=== PATIENT | female | born 1955 | race Caucasian/White ===

== ENCOUNTER 2019-04-22 15:49 | Inpatient (IN) | payer BC ==
[~2019-04-22] VITALS: Ht 157.5 cm; Wt 94.8 kg
[2019-04-22 16:00] VITALS: BP 120/64
[2019-04-22] MEDS ORDERED: ASCO125T PO (16:48)
[2019-04-22] MEDS ORDERED: BUDE6HFA INH (17:23)
[2019-04-22] MEDS ORDERED: ECHI1CAP2 PO (17:23)
[2019-04-22] MEDS ORDERED: [UNRECOGNIZED DRUG - CODE] IJ (17:23)
[2019-04-22] MEDS ORDERED: NALO4SPR IVP (17:23)
[2019-04-22] MEDS ORDERED: CYCL10TA7 PO (17:23)
[2019-04-22] MEDS ORDERED: LISI-648 MT (17:23)
[2019-04-22] MEDS ORDERED: CLON0.1T14 PO (17:23)
[2019-04-22] MEDS ORDERED: MOM PO (17:23)
[2019-04-22] MEDS ORDERED: LORA1TAB PO (17:23)
[2019-04-22] MEDS ORDERED: LOV40 SQ (17:23)
[2019-04-22] MEDS ORDERED: OXYC-662 PO (17:23)
[2019-04-22] MEDS ORDERED: VIT1CAPS PO (17:23)
[2019-04-22] MEDS ORDERED: BUDE0.5A3 IH (17:23)
[2019-04-22] MEDS ORDERED: POLY119P18 PO (17:23)
[2019-04-22] MEDS ORDERED: BISA10SU62 PO (17:23)
[2019-04-22] MEDS ORDERED: APIX5TAB PO (17:23)
[2019-04-22] MEDS ORDERED: ATROV INH (17:23)
[2019-04-22] MEDS ORDERED: ASCO500C15 PO (17:23)
[2019-04-22] MEDS ORDERED: LORA10TA7 PO (17:23)
[2019-04-22] MEDS ORDERED: HYDR-4009 PO (17:23)
[2019-04-22] MEDS ORDERED: TIOT18CA3 IH (17:23)
[2019-04-22] MEDS ORDERED: DOCU-138 PO (17:23)
[2019-04-22] MEDS ORDERED: CALC-1042 PO (17:23)
[2019-04-22] MEDS ORDERED: ONDA4TAB5 PO (17:23)
[2019-04-22] MEDS ORDERED: GABA-531 PO (17:23)
[2019-04-22] MEDS ORDERED: GLUC-113 PO (17:23)
[2019-04-22] MEDS ORDERED: FURO-152 PO (17:23)
[2019-04-22] MEDS ORDERED: FURO20TA4 PO (17:23)
[2019-04-22] MEDS ORDERED: CELE-84 PO (17:23)
[2019-04-22] MEDS ORDERED: ALBU90AE INH (17:23)
[2019-04-22] MEDS ORDERED: MONT10TA24 PO (17:23)
[2019-04-22] MEDS ORDERED: DOXY25TA61 PO (17:23)
[2019-04-22] MEDS ORDERED: TRAM50TA3 PO (17:23)
[2019-04-22] MEDS ORDERED: THEO100C PO (17:23)
[2019-04-22] MEDS ORDERED: FERR324T4 MT (17:23)
[2019-04-22 17:55] VITALS: BP 120/64
[2019-04-22] MEDS ORDERED: ONDANSETRON HCL 4MG TABLET PO PRN (18:00)
[2019-04-22] MEDS ORDERED: CLONIDINE 0.1MG TABLET PO PRN (18:00)
[2019-04-22] MEDS ORDERED: BISACODYL 10MG SUPP PR PRN (18:00)
[2019-04-22] MEDS ORDERED: LORATADINE 10MG TABLET PO PRN (18:00)
[2019-04-22] MEDS ORDERED: IPRATROPIUM/ALBUTEROL 0.5-3(2.5)MG/3ML NEB HHN PRN (18:00)
[2019-04-22] MEDS: HYDROCODONE/ACETAMINOPHEN 5/325MG TABLET PO PRN (18:36)
[2019-04-22 20:00] VITALS: BP 110/63
[2019-04-22] MEDS: IPRATROPIUM/ALBUTEROL 0.5-3(2.5)MG/3ML NEB HHN SCH (20:45)
[2019-04-22] MEDS: MONTELUKAST SODIUM 10MG TABLET PO SCH (21:00)
[2019-04-22] MEDS ORDERED: OXYCODONE HCL 10MG TABLET SR 12HR PO SCH (21:00)
[2019-04-22] MEDS ORDERED: ACETAMINOPHEN 325MG TABLET PO PRN (21:30)
[2019-04-22 21:44] LABS: HEMOGLOBIN. 9.3 g/dL (12.0-16.0); MEAN CORPUSCULAR HEMOGLOBIN 32.5 pg (28.0-32.0); MEAN CORPUSCULAR VOLUME 94.7 fL (81.0-99.0); MEAN PLATELET VOLUME 6.9 fl (7.4-10.4); PLATELET 478 x1000/uL (130-400); RED BLOOD CELL COUNT 2.85 mill/uL (4.2-5.4); RED CELL DISTRIBUTION WIDTH 13.1 % (11.6-14.6)
[2019-04-22 21:46] LABS: CHLORIDE 101 mEq/L (98-107)
[2019-04-22] MEDS: GABAPENTIN 300MG CAPSULE PO SCH (21:54)
[2019-04-22 22:08] LABS: PLATELET ESTIMATE INCREASED
[2019-04-22] MEDS: OXYCODONE HCL 10MG TABLET SR 12HR PO SCH (22:50)
[2019-04-23] MEDS: HYDROCODONE/ACETAMINOPHEN 5/325MG TABLET PO PRN ×2 (02:15→12:01)
[2019-04-23 05:48] LABS: CLARITY URINE CLEAR (CLEAR); COLOR URINE YELLOW (YELLOW); KETONES URINE NEGATIVE (NEGATIVE); LEUKOCYTE ESTERASE URINE NEGATIVE (NEGATIVE); NITRITE URINE NEGATIVE (NEGATIVE); OCCULT BLOOD URINE NEGATIVE (NEGATIVE); PH URINE 5.5 (4.5-8.0); PROTEIN URINE NEGATIVE (NEGATIVE); SPECIFIC GRAVITY URINE 1.006 (1.005-1.030); UROBILINOGEN URINE 0.2 E.U./dL (0.2-1.0)
[2019-04-23] MEDS: TRAMADOL 50MG TABLET PO PRN (06:17)
[2019-04-23] MEDS: BUDESONIDE 0.5MG/2ML NEB HHN SCH ×3 (07:00→22:02)
[2019-04-23 08:00] VITALS: BP 113/62
[2019-04-23 08:02] LABS: HEMATOCRIT. 27.9 % (36.0-48.0); HEMOGLOBIN. 9.6 g/dL (12.0-16.0); MEAN CORPUSCULAR HEMOGLOBIN 32.8 pg (28.0-32.0); MEAN PLATELET VOLUME 6.9 fl (7.4-10.4); PLATELET 453 x1000/uL (130-400); PROTHROMBIN TIME 9.9 sec (9.6-11.0); RED BLOOD CELL COUNT 2.94 mill/uL (4.2-5.4); RED CELL DISTRIBUTION WIDTH 13.6 % (11.6-14.6)
[2019-04-23] MEDS: FUROSEMIDE 20MG TABLET PO SCH (08:51)
[2019-04-23] MEDS: CELECOXIB 200MG CAPSULE PO SCH (08:52)
[2019-04-23] MEDS: DOCUSATE SODIUM 100MG CAPSULE PO SCH ×2 (08:52→16:17)
[2019-04-23] MEDS: OXYCODONE HCL 10MG TABLET SR 12HR PO SCH ×2 (08:53→20:14)
[2019-04-23 09:32] LABS: CHLORIDE 104 mEq/L (98-107)
[2019-04-23] MEDS: IPRATROPIUM/ALBUTEROL 0.5-3(2.5)MG/3ML NEB HHN SCH ×2 (10:16→18:37)
[2019-04-23] MEDS: APIXABAN 5 MG TABLET PO SCH ×2 (12:00→16:17)
[2019-04-23] MEDS: CYCLOBENZAPRINE 10MG TABLET PO PRN (15:06)
[2019-04-23 15:20] LABS: PLATELET ESTIMATE INCREASED
[2019-04-23] MEDS: HYDROCODONE/ACETAMINOPHEN 10/325MG TABLET PO PRN (16:37)
[2019-04-23] MEDS: GABAPENTIN 300MG CAPSULE PO SCH (20:13)
[2019-04-23] MEDS: MONTELUKAST SODIUM 10MG TABLET PO SCH (20:13)
[2019-04-23 20:34] VITALS: BP 114/54
[2019-04-23] MEDS ORDERED: LORAZEPAM 1MG TABLET PO PRN (21:00)
[2019-04-23] MEDS: LORAZEPAM 1MG TABLET PO PRN (21:33)
[2019-04-24] MEDS: HYDROCODONE/ACETAMINOPHEN 10/325MG TABLET PO PRN ×2 (02:12→12:09)
[2019-04-24] MEDS: PANTOPRAZOLE 40MG DR TABLET PO SCH (06:01)
[2019-04-24 07:30] VITALS: BP 105/59
[2019-04-24] MEDS: OXYCODONE HCL 10MG TABLET SR 12HR PO SCH ×2 (08:13→20:07)
[2019-04-24] MEDS: CELECOXIB 200MG CAPSULE PO SCH (08:13)
[2019-04-24] MEDS: FUROSEMIDE 20MG TABLET PO SCH (08:13)
[2019-04-24] MEDS: APIXABAN 5 MG TABLET PO SCH ×2 (08:13→16:11)
[2019-04-24] MEDS: DOCUSATE SODIUM 100MG CAPSULE PO SCH ×2 (08:13→16:11)
[2019-04-24] MEDS: BUDESONIDE 0.5MG/2ML NEB HHN SCH ×2 (11:48→18:51)
[2019-04-24] MEDS: IPRATROPIUM/ALBUTEROL 0.5-3(2.5)MG/3ML NEB HHN SCH ×2 (11:49→18:51)
[2019-04-24] MEDS: CYCLOBENZAPRINE 10MG TABLET PO PRN (14:56)
[2019-04-24 20:00] VITALS: BP 117/51
[2019-04-24] MEDS: MONTELUKAST SODIUM 10MG TABLET PO SCH (20:52)
[2019-04-24] MEDS: GABAPENTIN 300MG CAPSULE PO SCH (20:52)
[2019-04-24] MEDS: LORAZEPAM 1MG TABLET PO PRN (22:20)
[2019-04-25] MEDS: HYDROCODONE/ACETAMINOPHEN 10/325MG TABLET PO PRN ×2 (00:08→11:23)
[2019-04-25] MEDS: CYCLOBENZAPRINE 10MG TABLET PO PRN ×2 (03:21→13:29)
[2019-04-25] MEDS: PANTOPRAZOLE 40MG DR TABLET PO SCH (06:27)
[2019-04-25 06:56] LABS: BASOPHILS % 0.5 % (0.0-2.0); EOSINOPHILS % 2.5 % (0.0-5.0); HEMATOCRIT. 27.6 % (36.0-48.0); HEMOGLOBIN. 9.4 g/dL (12.0-16.0); LYMPHOCYTES % 26.7 % (20.0-50.0); MEAN CORPUSCULAR HEMOGLOBIN 32.3 pg (28.0-32.0); MEAN CORPUSCULAR VOLUME 94.9 fL (81.0-99.0); MEAN PLATELET VOLUME 6.5 fl (7.4-10.4); MONOCYTES % 8.7 % (2.0-8.0); NEUTROPHILS % 61.6 % (40.0-76.0); PLATELET 571 x1000/uL (130-400); RED BLOOD CELL COUNT 2.91 mill/uL (4.2-5.4); RED CELL DISTRIBUTION WIDTH 13.4 % (11.6-14.6)
[2019-04-25] MEDS: IPRATROPIUM/ALBUTEROL 0.5-3(2.5)MG/3ML NEB HHN SCH (07:10)
[2019-04-25] MEDS: BUDESONIDE 0.5MG/2ML NEB HHN SCH (07:10)
[2019-04-25 07:38] VITALS: BP 116/63
[2019-04-25] MEDS: DOCUSATE SODIUM 100MG CAPSULE PO SCH ×2 (08:08→17:02)
[2019-04-25] MEDS: FUROSEMIDE 20MG TABLET PO SCH (08:08)
[2019-04-25] MEDS: CELECOXIB 200MG CAPSULE PO SCH (08:09)
[2019-04-25] MEDS: OXYCODONE HCL 10MG TABLET SR 12HR PO SCH ×2 (08:09→20:02)
[2019-04-25] MEDS: APIXABAN 5 MG TABLET PO SCH ×2 (08:09→17:02)
[2019-04-25 08:23] LABS: FOLIC ACID (FOLATE) SERUM 19.3 ng/mL (>5.38)
[2019-04-25 09:57] LABS: CHLORIDE 106 mEq/L (98-107)
[2019-04-25 10:11] LABS: TOTAL IRON BINDING CAPACITY 251 ug/dL (250-450)
[2019-04-25 10:15] LABS: PHOSPHORUS 3.1 mg/dL (2.5-4.9)
[2019-04-25] MEDS: TRAMADOL 50MG TABLET PO PRN (15:49)
[2019-04-25 20:01] VITALS: BP 135/66
[2019-04-25] MEDS: GABAPENTIN 300MG CAPSULE PO SCH (20:02)
[2019-04-25] MEDS: MONTELUKAST SODIUM 10MG TABLET PO SCH (20:02)
[2019-04-25] MEDS: LORAZEPAM 1MG TABLET PO PRN (21:47)
[2019-04-26] MEDS: HYDROCODONE/ACETAMINOPHEN 10/325MG TABLET PO PRN ×2 (00:26→11:33)
[2019-04-26] MEDS: TRAMADOL 50MG TABLET PO PRN ×2 (04:23→15:47)
[2019-04-26 08:00] VITALS: BP 121/54
[2019-04-26] MEDS: DOCUSATE SODIUM 100MG CAPSULE PO SCH ×2 (08:05→16:35)
[2019-04-26] MEDS: APIXABAN 5 MG TABLET PO SCH ×2 (08:05→16:35)
[2019-04-26] MEDS: FAMOTIDINE 20MG TABLET PO SCH ×2 (08:05→16:35)
[2019-04-26] MEDS: FUROSEMIDE 20MG TABLET PO SCH (08:05)
[2019-04-26] MEDS: CELECOXIB 200MG CAPSULE PO SCH (08:06)
[2019-04-26] MEDS: OXYCODONE HCL 10MG TABLET SR 12HR PO SCH ×2 (08:06→20:08)
[2019-04-26] MEDS: IPRATROPIUM/ALBUTEROL 0.5-3(2.5)MG/3ML NEB HHN SCH ×2 (09:33→15:23)
[2019-04-26] MEDS: CYCLOBENZAPRINE 10MG TABLET PO PRN (13:10)
[2019-04-26 20:00] VITALS: BP 109/48
[2019-04-26] MEDS: GABAPENTIN 300MG CAPSULE PO SCH (20:05)
[2019-04-26] MEDS: MONTELUKAST SODIUM 10MG TABLET PO SCH (20:05)
[2019-04-26] MEDS: LORAZEPAM 1MG TABLET PO PRN (21:43)
[2019-04-27] MEDS: HYDROCODONE/ACETAMINOPHEN 10/325MG TABLET PO PRN ×3 (00:05→16:56)
[2019-04-27] MEDS: TRAMADOL 50MG TABLET PO PRN ×2 (03:48→15:28)
[2019-04-27] MEDS: CYCLOBENZAPRINE 10MG TABLET PO PRN (06:06)
[2019-04-27 07:00] VITALS: BP 118/61
[2019-04-27] MEDS: CELECOXIB 200MG CAPSULE PO SCH (08:17)
[2019-04-27] MEDS: DOCUSATE SODIUM 100MG CAPSULE PO SCH ×2 (08:17→16:53)
[2019-04-27] MEDS: FAMOTIDINE 20MG TABLET PO SCH ×2 (08:18→16:53)
[2019-04-27] MEDS: APIXABAN 5 MG TABLET PO SCH ×2 (08:18→16:53)
[2019-04-27] MEDS: OXYCODONE HCL 10MG TABLET SR 12HR PO SCH ×2 (08:18→20:39)
[2019-04-27] MEDS: FUROSEMIDE 20MG TABLET PO SCH (08:18)
[2019-04-27] MEDS: IPRATROPIUM/ALBUTEROL 0.5-3(2.5)MG/3ML NEB HHN SCH ×2 (08:29→16:08)
[2019-04-27 20:00] VITALS: BP 130/63
[2019-04-27] MEDS: MONTELUKAST SODIUM 10MG TABLET PO SCH (20:45)
[2019-04-27] MEDS: GABAPENTIN 300MG CAPSULE PO SCH (22:10)
[2019-04-28] MEDS: HYDROCODONE/ACETAMINOPHEN 10/325MG TABLET PO PRN ×3 (00:48→23:56)
[2019-04-28] MEDS: LORAZEPAM 1MG TABLET PO PRN (02:48)
[2019-04-28] MEDS: CYCLOBENZAPRINE 10MG TABLET PO PRN ×2 (04:15→15:57)
[2019-04-28 06:08] LABS: BASOPHILS % 1.3 % (0.0-2.0); EOSINOPHILS % 2.6 % (0.0-5.0); HEMATOCRIT. 26.7 % (36.0-48.0); HEMOGLOBIN. 9.2 g/dL (12.0-16.0); MEAN CORPUSCULAR HEMOGLOBIN 32.4 pg (28.0-32.0); MEAN CORPUSCULAR VOLUME 94.4 fL (81.0-99.0); MEAN PLATELET VOLUME 6.3 fl (7.4-10.4); MONOCYTES % 10.3 % (2.0-8.0); NEUTROPHILS % 51.8 % (40.0-76.0); PLATELET 592 x1000/uL (130-400); RED BLOOD CELL COUNT 2.83 mill/uL (4.2-5.4)
[2019-04-28 06:15] LABS: CHLORIDE 106 mEq/L (98-107)
[2019-04-28 06:21] LABS: PHOSPHORUS 3.8 mg/dL (2.5-4.9)
[2019-04-28 08:00] VITALS: BP 116/59
[2019-04-28] MEDS: FUROSEMIDE 20MG TABLET PO SCH (08:13)
[2019-04-28] MEDS: APIXABAN 5 MG TABLET PO SCH ×2 (08:13→16:00)
[2019-04-28] MEDS: CELECOXIB 200MG CAPSULE PO SCH (08:13)
[2019-04-28] MEDS: FAMOTIDINE 20MG TABLET PO SCH ×2 (08:14→16:00)
[2019-04-28] MEDS: OXYCODONE HCL 10MG TABLET SR 12HR PO SCH ×2 (08:14→20:37)
[2019-04-28] MEDS: DOCUSATE SODIUM 100MG CAPSULE PO SCH ×2 (08:15→16:00)
[2019-04-28] MEDS: IPRATROPIUM/ALBUTEROL 0.5-3(2.5)MG/3ML NEB HHN SCH ×3 (08:19→21:13)
[2019-04-28] MEDS: TRAMADOL 50MG TABLET PO PRN (14:18)
[2019-04-28 20:00] VITALS: BP 108/54
[2019-04-28] MEDS: GABAPENTIN 300MG CAPSULE PO SCH (20:36)
[2019-04-28] MEDS: MONTELUKAST SODIUM 10MG TABLET PO SCH (20:37)
[2019-04-29] MEDS: LORAZEPAM 1MG TABLET PO PRN (01:55)
[2019-04-29] MEDS: TRAMADOL 50MG TABLET PO PRN ×4 (03:56→22:36)
[2019-04-29] MEDS: IPRATROPIUM/ALBUTEROL 0.5-3(2.5)MG/3ML NEB HHN SCH ×2 (07:14→18:30)
[2019-04-29 07:56] VITALS: BP 109/59
[2019-04-29] MEDS ORDERED: OXYCODONE HCL 10MG TABLET SR 12HR PO SCH (08:00)
[2019-04-29] MEDS: HYDROCODONE/ACETAMINOPHEN 10/325MG TABLET PO PRN ×3 (08:17→19:59)
[2019-04-29] MEDS: CELECOXIB 200MG CAPSULE PO SCH (08:17)
[2019-04-29] MEDS: FAMOTIDINE 20MG TABLET PO SCH ×2 (08:17→16:20)
[2019-04-29] MEDS: APIXABAN 5 MG TABLET PO SCH ×2 (08:17→16:20)
[2019-04-29] MEDS: DOCUSATE SODIUM 100MG CAPSULE PO SCH ×2 (08:17→16:20)
[2019-04-29] MEDS: FUROSEMIDE 20MG TABLET PO SCH (08:17)
[2019-04-29] MEDS: CYCLOBENZAPRINE 10MG TABLET PO PRN (11:50)
[2019-04-29 20:00] VITALS: BP 120/59
[2019-04-29] MEDS: MONTELUKAST SODIUM 10MG TABLET PO SCH (22:03)
[2019-04-29] MEDS: GABAPENTIN 300MG CAPSULE PO SCH (22:03)
[2019-04-30] MEDS: LORAZEPAM 1MG TABLET PO PRN (00:14)
[2019-04-30] MEDS: HYDROCODONE/ACETAMINOPHEN 10/325MG TABLET PO PRN ×2 (02:15→09:11)
[2019-04-30] MEDS: TRAMADOL 50MG TABLET PO PRN (06:23)
[2019-04-30 08:00] VITALS: BP 115/63
[2019-04-30] MEDS: CELECOXIB 200MG CAPSULE PO SCH (09:12)
[2019-04-30] MEDS: APIXABAN 5 MG TABLET PO SCH (09:12)
[2019-04-30] MEDS: FAMOTIDINE 20MG TABLET PO SCH (09:12)
[2019-04-30] MEDS: DOCUSATE SODIUM 100MG CAPSULE PO SCH (09:12)
[2019-04-30] MEDS: FUROSEMIDE 20MG TABLET PO SCH (09:12)
[2019-04-30 11:50] VITALS: BP 115/63
[2019-05-01 15:12] LABS: 25-HYDROXY VITAMIN D3 36 ng/mL (.)
== END 2019-04-30 13:20 | disposition home health service (06) | DRG 554 ==
PROVIDERS: ADMIT Physical Medicine & Rehabilitation Spinal Cord Injury Medicine; ATTEND Internal Medicine Critical Care Medicine
DX: M17.11 Unilateral primary osteoarthritis, right knee (principal); F11.20 Opioid dependence, uncomplicated; J44.9 Chronic obstructive pulmonary disease, unspecified; I10 Essential (primary) hypertension; D64.9 Anemia, unspecified; F41.9 Anxiety disorder, unspecified; K59.00 Constipation, unspecified; Z96.651 Presence of right artificial knee joint; R53.81 Other malaise; Z87.891 Personal history of nicotine dependence; Z86.711 Personal history of pulmonary embolism; Z82.49 Family history of ischemic heart disease and other diseases of the circulatory system; Z85.3 Personal history of malignant neoplasm of breast
CPT/HCPCS: 36415; 71045; 80048; 81003; 82306; 82607; 82728; 82746; 83540; 83550; 83735; 84100; 84134; 84443; 93970; 94640; 97110; 97116; 97162; 97166; 97530; 97535; A6261; J7620; J7626